=== PATIENT | male | born 1940 | race Caucasian/White ===

== ENCOUNTER → 2019-03-29 10:23 | Outpatient (CLI) | payer OTHER | END | disposition home or self-care (01) | LOC: D.LAB 10:23 | PROVIDERS: ATTEND Family Medicine | DX: K52.9 Noninfective gastroenteritis and colitis, unspecified (principal) ==

== ENCOUNTER 2019-07-14 06:20 | Day surgery (SDC) | payer OTHER ==
[2019-07-13 13:14] LABS: ANION GAP 14.1 mmol/L (8-16); CALCIUM 8.6 mg/dL (8.5-10.1); CARBON DIOXIDE 26.5 mmol/L (21.0-32.0); CREATININE - SERUM 1.4 mg/dL (0.6-1.3); POTASSIUM - SERUM 4.6 mmol/L (3.5-5.1)
[2019-07-13 13:33] LABS: APTT 27.6 SECONDS (22.8-39.4); INR 1.02 (0.85-1.17); PROTIME 13.4 SECONDS (11.6-15.0)
[2019-07-13 13:40] LABS: BASOPHILS 0.2 % (0-2); HEMATOCRIT 36.4 % (42.0-54.0); HEMOGLOBIN 11.3 g/dL (13.5-17.5); LYMPHOCYTES 30.1 % (15-50); MCH 29.5 pg (26.0-34.0); MEAN PLATELET VOLUME 10.2 fL (7.4-10.4); MONOCYTES 7.8 % (2-11); NEUTROPHILS 57.9 % (40-80); PLATELET COUNT 216 10x3/uL (130-400); RBC 3.83 10x6/uL (4.20-6.10); RDW 15.7 % (11.5-14.5); WBC 11.5 10x3/uL (4.8-10.8)
[~2019-07-14] VITALS: Ht 177.8 cm; Wt 124.7 kg
--- NOTE | ~2019-07-14 | OP ---
PATIENT NAME: KAITLIN ALLISON MEDICAL RECORD: [id number] :42 LOCATION:D.OPS ADMISSION DATE: SURGEON: SYLVESTER BUCHANAN MD DATE OF OPERATION: 07/14/2019 PREOPERATIVE DIAGNOSES: 1. Biliary dyskinesia. 2. Atrial fibrillation. 3. Chronic anticoagulant use. 4. Hypertension. 5. Chronic lymphocytic leukemia. 6. Hypothyroidism. 7. Diabetes mellitus. 8. Hyperlipidemia. POSTOPERATIVE DIAGNOSES: 1. Biliary dyskinesia. 2. Atrial fibrillation. 3. Chronic anticoagulant use. 4. Hypertension. 5. Chronic lymphocytic leukemia. 6. Hypothyroidism. 7. Diabetes mellitus. 8. Hyperlipidemia. PROCEDURE: Laparoscopic cholecystectomy. SURGEON: Sylvester Buchanan MD REPORT OF PROCEDURE: The patient's abdomen was prepped and draped in sterile fashion. A cutdown was made in the midline just above the umbilicus. A 0 Vicryl was placed in the fascia bilaterally and the fascia was incised with 15-blade. I then bluntly entered the peritoneal cavity and placed a 12-mm Kathie port. Under direct visualization, a 5 mm trocar was placed in the epigastrium and 2 more 5-mm trocars were placed in the right subcostal region. The gallbladder was grasped and elevated. It was noted to be distended with some [id number] inflammatory changes. We ended up aspirating the gallbladder to remove some of the bilious content. This made the gallbladder more graspable. We dissected out the cystic artery and cystic duct and these were clipped proximally and distally and ligated in standard fashion. The gallbladder was then taken off the liver bed using electrocautery and placed into an Endo Catch bag. The right upper quadrant was then irrigated out and care taken to make sure there is no sign of any bleeding or bile leakage. Any bleeding that was found was treated with electrocautery. At this point, the ports and insufflation were then removed and the gallbladder was taken out through the umbilicus. The umbilical fascia was closed with interrupted 0 Vicryls times 3. The wounds were then irrigated out with normal saline and infused with 10 mL of 0.25% Marcaine with epinephrine. The skin incisions were closed with subcutaneous 5-0 Monocryl and dressed appropriately. COMPLICATIONS: None. CONDITION: Stable. ANESTHESIA: General endotracheal and local. OPERATIVE REPORT [id number] KAITLIN ALLISON BLOOD LOSS: Minimal. TRANSINT:[id number] Voice Confirmation ID: [id number] DOCUMENT ID: [id number] SYLVESTER BUCHANAN MD CC: AMANDA WELCH DO [id number] DICTATION DATE: 07/14/19 1030 DISCHARGING MACHINE OPERATOR: 07/14/19 1101 [facility] [place] 07/14/19 [place] [id number] [place] [id number]
[~2019-07-14 06:20] MED LIST: ATIVAN1 MG PO; CENTRUM MEN'S1 EACH PO; COREG12.5 MG PO; COZAAR50 MG PO; EFFEXOR XR150 MG PO; ELIQUIS5 MG PO; EZFE 200200 MG PO; FLOMAX0.4 MG PO; GEMFIBROZIL600 MG PO; GLIPIZIDE10 MG PO; HUMALOG MIX; IMBRUVICA140 MG PO; ISOSORBIDE MONO30 M1 PO; LEVOTHYROXINE50 MCG PO; LIPITOR20 MG PO; PROSCAR5 MG PO; SODIUM BICARBO650 MG PO; ZYLOPRIM300 MG PO
[2019-07-14 07:42] VITALS: BP 98/62; Ht 177.8 cm; Wt 124.7 kg
--- NOTE | 2019-07-14 10:08 | NUR ---
PATIENT ARMS, LEGS, ABDOMEN AND LEFT EYE, NUMEREOUS BRUISING NOTED, PATIENT STATES BRUISES VERY EASY, TWORLEY.
[2019-07-14] MEDS ORDERED: HYDROCODON-ACE1 EA10 PO (10:26)
--- NOTE | 2019-07-14 12:21 | NUR ---
1115 PATIENT AWAKE AND ALERT. SBP < 68. RETAKEN. SBP 70'S. PATIENT PLACED IN [place]BER[place] POSITION, FLUIDS NORMAL SALINE OPENED WIDE OPEN. ANESTHESIA NOTIFIED
--- NOTE | 2019-07-14 12:23 | NUR ---
1118 MELISSA HENAO APPRENTICE PLANT ATTENDANT GAVE ORDER FOR EPHEDRINE
--- NOTE | 2019-07-14 12:28 | NUR ---
1130 DR GRAHAM AT BEDSIDE. ORDERS FOR ECG AND NEOSINEPHRINE RECEIVED.
--- NOTE | 2019-07-14 12:30 | NUR ---
1155 DR GRAHAM AT BESIDE. sbp STILL < 75. ORDERS FOR CALCIUM CHLORIDE RECEIVED.
== END 2019-07-14 15:00 | disposition home or self-care (01) ==
LOC: D.OPS 06:20 → D.PAN 08:45 → D.OPS 09:30
PROVIDERS: Anesthesiology; ATTEND Surgery
DX: K81.1 Chronic cholecystitis (principal); C91.90 Lymphoid leukemia, unspecified not having achieved remission; I48.91 Unspecified atrial fibrillation; E03.9 Hypothyroidism, unspecified; E78.2 Mixed hyperlipidemia; E11.9 Type 2 diabetes mellitus without complications; K21.9 Gastro-esophageal reflux disease without esophagitis; I12.9 Hypertensive chronic kidney disease with stage 1 through stage 4 chronic kidney disease, or unspecified chronic kidney disease; N18.3 Chronic kidney disease, stage 3 (moderate); Z79.84 Long term (current) use of oral hypoglycemic drugs

== ENCOUNTER 2020-03-28 11:46 | Inpatient (IN) | payer OTHER ==
[~2020-03-28] VITALS: Ht 177.8 cm; Wt 108.6 kg
[~2020-03-28 11:46] MED LIST changes: +HYDROCODON-ACE1 EA10 PO
[2020-03-28] MEDS ORDERED: [UNRECOGNIZED DRUG - OTHER] (11:54)
[2020-03-28 13:30] VITALS: BP 115/66
[2020-03-28 15:30] VITALS: BP 120/78
[2020-03-28 15:40] LABS: BASOPHILS 0.5 % (0-2); EOSINOPHILS 4.9 % (0-7); HEMATOCRIT 32.2 % (42.0-54.0); IMMATURE GRANULOCYTES 1.8 % (0-5); LYMPHOCYTES 11.5 % (15-50); MCH 27.2 pg (26.0-34.0); MCHC 31.1 g/dL (31.0-37.0); MCV 87.7 fL (80.0-100.0); MEAN PLATELET VOLUME 9.1 fL (7.4-10.4); MONOCYTES 14.4 % (2-11); NEUTROPHILS 66.9 % (40-80); PLATELET COUNT 205 10x3/uL (130-400); RBC 3.67 10x6/uL (4.20-6.10); RDW 19.7 % (11.5-14.5); WBC 3.9 10x3/uL (4.8-10.8)
[2020-03-28 16:01] LABS: INR 1.4 (0.85-1.17)
[2020-03-28 16:02] LABS: ANION GAP 8.7 mmol/L (8-16); CALCIUM 8.3 mg/dL (8.5-10.1); CARBON DIOXIDE 27.5 mmol/L (21.0-32.0); CREATININE - SERUM 1.2 mg/dL (0.6-1.3); POTASSIUM - SERUM 4.2 mmol/L (3.5-5.1)
[2020-03-28 16:16] LABS: ALBUMIN 2.8 g/dL (3.4-5.0); BILIRUBIN - TOTAL 0.4 mg/dL (0.2-1.3); PROTEIN - SERUM 6.1 g/dL (6.4-8.2)
[2020-03-28 18:26] VITALS: BP 114/60
--- NOTE | 2020-03-28 19:10 | NUR ---
BS REPORT TO [facility]
[2020-03-28 20:00] VITALS: BP 125/71
--- NOTE | 2020-03-28 20:00 | NUR ---
PT BROUGHT TO FLOOR VIA STRETCHER. TRANSFERED PT TO BED. PT HAS LEFT HIP PAIN BUT DENIES NEEDS FOR PAIN MEDS AT THIS TIME. A0X4. IV RIGHT AC SL. PT HAS INSULIN PUMP THAT TELLS HIS BS. 123 AT THIS TIME. REVIEWED HISTORY AND HOME MEDS. ASSESSMENT COMPLETED. KATY TRIPP APN AT BEDSIDE TO SPEAK WITH PT. WILL CTM
--- NOTE | 2020-03-28 21:30 | NUR ---
DR COELHO AT BEDSIDE SPEAKING WITH PT. STATED HIP FX IS NOT OPERABLE AND PT CAN GO HOME IN AM, KATY TRIPP NOTIFIED AND STATES ONCOLOGY WILL SEE PT IN AM AND THEN HE CAN GO HOME. PT AGREED. DR COELHO OK'D PT GET UP WITH WALKER, WBAT. PT HAS NO PAIN TO LEFT HIP WHILE AMBULATING WITH WALKER. HOME CPAP SET UP FOR PT. PROVIDED SANDWICH, PUDDING AND [employer]. WILL CTM
[2020-03-29] VITALS: BP 94/50
[2020-03-29] MEDS ORDERED: COREG12.5 MG PO (03:03)
[2020-03-29] MEDS ORDERED: OMEPRAZOLE40 MG PO (03:03)
[2020-03-29] MEDS ORDERED: FLOMAX0.4 MG PO (03:04)
[2020-03-29 03:08] VITALS: Ht 177.8 cm; Wt 108.6 kg
[2020-03-29 04:00] VITALS: BP 124/60
--- NOTE | 2020-03-29 04:25 | NUR ---
PT LYING IN BED SLEEPING WITHOUT DISTRESS, CL IN REACH, WILL CTM
[2020-03-29 06:54] LABS: BASOPHILS 0.4 % (0-2); HEMATOCRIT 33.4 % (42.0-54.0); HEMOGLOBIN 10.2 g/dL (13.5-17.5); IMMATURE GRANULOCYTES 1.3 % (0-5); LYMPHOCYTES 15.5 % (15-50); MCH 26.8 pg (26.0-34.0); MCHC 30.5 g/dL (31.0-37.0); MCV 87.9 fL (80.0-100.0); MEAN PLATELET VOLUME 9.3 fL (7.4-10.4); MONOCYTES 18.8 % (2-11); RDW 19.9 % (11.5-14.5); WBC 4.5 10x3/uL (4.8-10.8)
[2020-03-29 07:00] LABS: PLATELET COUNT 262 10x3/uL (130-400)
[2020-03-29 07:01] LABS: ALBUMIN 2.8 g/dL (3.4-5.0); ANION GAP 6.1 mmol/L (8-16); BILIRUBIN - TOTAL 0.39 mg/dL (0.2-1.3); CALCIUM 8.1 mg/dL (8.5-10.1); CARBON DIOXIDE 24.8 mmol/L (21.0-32.0); CREATININE - SERUM 1.2 mg/dL (0.6-1.3); PHOSPHOROUS 2.5 mg/dL (2.5-4.9); POTASSIUM - SERUM 3.9 mmol/L (3.5-5.1); PROTEIN - SERUM 6.1 g/dL (6.4-8.2)
[2020-03-29 07:09] LABS: APTT 29.8 SECONDS (22.8-39.4); INR 1.24 (0.85-1.17); PROTIME 15.6 SECONDS (11.6-15.0)
[2020-03-29 08:09] VITALS: BP 121/58
[2020-03-29 12:12] VITALS: BP 119/59
--- NOTE | 2020-03-29 12:24 | NUR ---
LYING IN BED,WITHOUT DISTRESS.CALL LIGHT IN REACH
== END 2020-03-29 14:26 | disposition home or self-care (01) | DRG 536 ==
LOC: D.ER 11:46 → D.MS 15:35
PROVIDERS: Family Medicine; ADMIT Family Medicine; ATTEND Family Medicine
DX: S32.512A Fracture of superior rim of left pubis, initial encounter for closed fracture (principal); C91.10 Chronic lymphocytic leukemia of B-cell type not having achieved remission; I48.20 Chronic atrial fibrillation, unspecified; W19.XXXA Unspecified fall, initial encounter; D64.9 Anemia, unspecified; Z79.01 Long term (current) use of anticoagulants; I10 Essential (primary) hypertension; K21.9 Gastro-esophageal reflux disease without esophagitis; F41.8 Other specified anxiety disorders; N40.0 Benign prostatic hyperplasia without lower urinary tract symptoms; G47.33 Obstructive sleep apnea (adult) (pediatric); E11.9 Type 2 diabetes mellitus without complications